=== PATIENT | male | born 1990 | race Caucasian/White ===

== ENCOUNTER 2017-05-14 23:40 | Emergency (ER) | payer OTHER ==
[~2017-05-14] VITALS: Ht 182.9 cm; Wt 74.8 kg
[2017-05-15 00:07] VITALS: BP 125/77
== END 2017-05-15 03:15 | disposition home or self-care (01) ==
LOC: ER 23:44
DX: R56.9 Unspecified convulsions (principal); F10.10 Alcohol abuse, uncomplicated; R19.7 Diarrhea, unspecified; R11.0 Nausea
CPT/HCPCS: A4606; Z7610